=== PATIENT | male | born 1965 ===

== ENCOUNTER 2017-08-04 10:30 | Day surgery (SDC) | payer MEDICAID ==
[2017-08-04] MEDS ORDERED: MIDAZOLAM HCL 2MG/2ML VIAL IV ONE (10:31)
[2017-08-04] MEDS ORDERED: PROPOFOL 10 MG/ML VIAL IV ONE (10:31)
[2017-08-04] MEDS ORDERED: LIDOCAINE 2% MDV (20MG/ML) 20ML VIAL IV ONE (10:31)
--- NOTE | 2017-08-05 13:10 | Operative Note ---
DATE OF SURGERY: 08/04/2017 OPERATION: COLONOSCOPY with cold forceps polypectomy x3. PREOPERATIVE DIAGNOSIS: History of polyps. POSTOPERATIVE DIAGNOSIS: Rectosigmoid colon polyps x3, status post cold forceps removal. PREPARATION QUALITY: Good to excellent. ESTIMATED BLOOD LOSS: Minimum. SPECIMENS: Rectosigmoid polyps. PROCEDURE: After informed consent was obtained from the patient, he was placed in the left lateral decubitus position in the endoscopy suite, sedated and monitored by the department of anesthesia. Digital rectal exam was unremarkable. A well-lubricated [id number] colonoscope was inserted into the rectum and advanced to the cecum. Preparation quality was good to excellent. The cecum, ascending colon, transverse colon, and descending colon as well as sigmoid colon were free of inflammatory changes, mass lesions, or polyps. There were 3 diminutive rectosigmoid colon polyps each removed with a cold forceps. The rectum was unremarkable in forward and J-turn views. The endoscope was straightened, the rectal ampulla deflated, and the endoscope was removed. RECOMMENDATIONS: The patient should undergo repeat exam in 3-5 years pending tissue histology. He should resume his medications and diet. As always, thank you for allowing me to participate in the healthcare of your patients. CC: MD EDITH Forrest
== END 2017-08-04 14:05 | disposition home or self-care (01) ==
LOC: HOP 10:30
PROVIDERS: ATTEND Internal Medicine Gastroenterology
DX: Z12.11 Encounter for screening for malignant neoplasm of colon (principal); Z86.010 Personal history of colon polyps; D12.7 Benign neoplasm of rectosigmoid junction; J45.909 Unspecified asthma, uncomplicated; I10 Essential (primary) hypertension; E78.00 Pure hypercholesterolemia, unspecified; E11.9 Type 2 diabetes mellitus without complications; Z79.4 Long term (current) use of insulin

== ENCOUNTER 2018-12-19 11:20 | Emergency (ER) | payer MEDICAID ==
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
[2018-12-19] MEDS ORDERED: CYCLOBENZAPRINE 10MG TABLET PO ONE (12:34)
--- NOTE | 2018-12-20 13:26 | RADIOLOGY REPORT ---
EXAM: LUMBAR SPINE WITH OBLIQUE VIEWS HISTORY: LOWER BACK PAIN. NO RECENT INJURY. TECHNIQUE: AP, lateral, and both oblique views of the lumbar spine are obtained as well as a spot lateral view of the lumbosacral junction. Comparison: None. FINDINGS: There is normal bone mineralization. Five non-rib bearing lumbar type vertebra are identified. Minor levoconvex curvature is identified centered at the L2-L3 level. There is minimal retrolisthesis throughout the lumbar spine with the exception of the L5-S1 level. Mild multilevel disk space narrowing is present most pronounced at the L4-L5 and L5-S1 levels. Multilevel marginal end plate spurring is present. No acute fracture is seen. No lytic or blastic bone lesion. Multilevel bilateral facet arthropathy is identified, most pronounced at the lower lumbar levels where it is mild to moderate in degree. There is diffuse atherosclerosis without aneurysmal dilatation of the abdominal aorta. IMPRESSION: 1. NO ACUTE FRACTURE, SUSPICIOUS SUBLUXATION, OR PREVERTEBRAL SOFT TISSUE SWELLING. 2. MULTILEVEL DEGENERATIVE CHANGES, DISCUSSED ABOVE. 3. MINOR MULTILEVEL RETROLISTHESIS WITH SPARING AT THE L5-s1 LEVEL. THIS LIKELY RELATES TO DEGENERATIVE DISK AND FACET DEGENERATIVE DISEASE. JOB NUMBER: [id number] [facility]
== END 2018-12-19 12:47 | disposition home or self-care (01) ==
LOC: ER 11:20
DX: M54.5 Low back pain (principal); I10 Essential (primary) hypertension; F17.210 Nicotine dependence, cigarettes, uncomplicated
CPT/HCPCS: 72110; 99283